=== PATIENT | female | born 1965 | race Caucasian/White ===

== ENCOUNTER 2016-07-08 09:54 | Emergency (ER) | payer OTHER ==
[~2016-07-08] VITALS: Wt 68.0 kg
[2016-07-08] MEDS ORDERED: ALBUTEROL 0.5% (NEB) 2.5 MG/0.5 ML AMP HHN STA (10:28)
[2016-07-08] MEDS ORDERED: predniSONE 20 MG TAB PO ONE (10:30)
--- NOTE | 2016-07-08 11:26 | RADRPT ---
PROCEDURE: XR Chest. CLINICAL INDICATION: Shortness of breath TECHNIQUE: Chest PA. COMPARISON: No comparison available. FINDINGS: The mediastinal structures are unremarkable. The heart is normal in size and configuration. The pu lmonary vascularity is normal. The lung hayes are unremarkable. No consolidation is identified. The pleural spaces are unremarkable. The axial skeleton is unremarkable. IMPRESSION: No active intrathoracic disease. RPTAT: [facility] .Lobito Nava MD, MD Date Time Electronically viewed and signed by .Lobito Nava MD, MD on 07/08/2016 11:26 .B/
[2016-07-08] MEDS ORDERED: ALBU18HF INHALATION (11:41)
[2016-07-08] MEDS ORDERED: IBUP-1542 PO (11:41)
[2016-07-08] MEDS ORDERED: AZIT250T94 PO (11:41)
[2016-07-08] MEDS ORDERED: PRED20TA PO (11:41)
--- NOTE | 2016-07-08 11:43 | ERD ---
ER Documentation Chief Complaint Date/Time DATE: 07/08/16 TIME: 11:42 Chief Complaint COUGH AND CONGESTION WITH FEVER FOR A FEW DAYS. NO VOMITING HPI This 50-year-old female presents with cough and congestion last week. She was prescribed cough syrup and Tamiflu by her primary doctor but she complains of persistent cough. His productive sputum. She has no current fevers but had a fever a few days ago per ROS All systems reviewed and are negative except as per history of present illness. Medications Home Meds Active Scripts Albuterol Sulfate* (Ventolin HFA*) 18 Gm Hfa.aer.ad, 2 PUFF INHALATION Q4H, #1 INHALER Prov:TERESA WONG MD 07/08/16 Ibuprofen* (Motrin*) 600 Mg Tab, 600 MG PO Q6, #15 TAB Prov:TERESA WONG MD 07/08/16 Azithromycin* (Zithromax*) 250 Mg Tablet, 250 MG PO .ZPACK DIRECTED, #6 TAB TAKE 500 MG (2 TABS) THE FIRST DAY THEN 250 MG (1 TAB) DAYS 2-5 Prov:TERESA WONG MD 07/08/16 Prednisone* (Prednisone*) 20 Mg Tab, 40 MG PO DAILY for 4 Days, TAB START July 09, 2016 Prov:TERESA WONG MD 07/08/16 PMhx/Soc Medical and Surgical Hx: pt denies Medical Hx, pt denies Surgical Hx Hx Alcohol Use: No Hx Substance Use: No Hx Tobacco Use: No Physical Exam Vitals Vital Signs Date Time Temp Pulse Resp B/P Pulse Ox O2 Delivery O2 Flow Rate FiO2 07/08/16 10:47 69 20 97 21 07/08/16 09:57 97.9 90 20 138/71 98 Physical Exam Const: [] Alert, [id number] per Head: Atraumatic Eyes: Normal Conjunctiva ENT: Normal External Ears, Nose and Mouth. Neck: Full range of motion..~ No meningismus. Resp: Clear to auscultation bilaterally. Coarse breath sounds bilaterally without appreciable rales or retractions. Cardio: Regular rate and rhythm, no murmurs Abd: Soft, non tender, non distended. Normal bowel sounds Skin: No petechiae or rashes Back: No midline or flank tenderness Ext: No cyanosis, or edema Neur: Awake and alert Psych: Normal Mood and Affect Results 24 hrs Current Medications Medications (Trade) Dose Ordered Sig/Chilo Route PRN Reason Start Time Stop Time Status Last Admin Dose Admin Prednisone (Prednisone) 60 mg ONCE ONCE PO 07/08/16 10:30 07/08/16 10:34 DC 07/08/16 10:35 Albuterol (Proventil 0.5% (Neb)) 2.5 mg ONCE STAT HHN 07/08/16 10:28 07/08/16 10:30 DC 07/08/16 10:37 Procedures/MDM Patient was given albuterol treatment 1 and prednisone 60 mg by mouth. Chest X-ray 1V Interpreted by me: Soft Tissue: No acute abnormalities Bones: No acute abnormalities Mediastinum/Cardiac Silhouette/Lungs: [No acute abnormalities]. Impression- normal 1 view chest x-ray Patient presents with a productive cough and URI symptoms for the last week. She may have had influenza which is persistent with cough. Given the productive cough and mild wheeze she will be treated with Zithromax, short course of prednisone and Ventolin. The patient was stable with no new complaints during the ER course. Clinically, there is no current evidence to suggest meningitis, sepsis, acute abdomen, pneumonia, acute coronary syndrome, pulmonary embolism, or any other emergent condition appearing to require further evaluation or hospitalization. The patient should certainly return for any new or worsening symptoms per the aftercare instructions. They should otherwise follow-up with her primary care doctor for reevaluation this week. Departure Diagnosis: Primary Impression: URI, acute Condition: Stable Patient Instructions: Bronchitis With Wheezing (Adult) Additional Instructions: X-ray normal per [place] otro vez con [place] doctor primario en el proximo watts or regresa para mas o nueva simptomas. TERESA WONG MD Jul 08, 2016 11:43
== END 2016-07-08 11:55 | disposition home or self-care (01) ==
LOC: FTE 09:54
DX: J06.9 Acute upper respiratory infection, unspecified (principal)
CPT/HCPCS: 71010; 94664; J7512; Z7502; Z7610